=== PATIENT | male | born 2000 | race Caucasian/White ===

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

== ENCOUNTER 2023-07-22 19:18 | Emergency (ER) | payer OTHER ==
[2023-07-22] MEDS ORDERED: ACETAMINOPHEN 500 MG TABLET (FP) ONE (19:42)
[2023-07-22] MEDS: ACETAMINOPHEN 500 MG TABLET (FP) PO ONE (19:44)
[2023-07-22 19:45] VITALS: BP 115/85; PULSE 65; RESP 17; TEMP 98.2; BMI 23.8
== END 2023-07-22 19:55 | disposition home or self-care (01) ==
LOC: FER 19:18
DX: S09.90XA Unspecified injury of head, initial encounter (principal); R51.9 Headache, unspecified; H53.149 Visual discomfort, unspecified; F40.8 Other phobic anxiety disorders; M54.2 Cervicalgia; W22.8XXA Striking against or struck by other objects, initial encounter
CPT/HCPCS: 99283-25